=== PATIENT | female | born 1985 | race Caucasian/White ===

== ENCOUNTER 2016-06-06 14:25 | Emergency (ER) | payer OTHER | END 2016-06-06 16:30 | disposition home or self-care (01) | LOC: ER1 14:25 | DX: L02.416 Cutaneous abscess of left lower limb (principal); E11.9 Type 2 diabetes mellitus without complications; Z90.49 Acquired absence of other specified parts of digestive tract; Z79.84 Long term (current) use of oral hypoglycemic drugs; Z79.899 Other long term (current) drug therapy | CPT/HCPCS: 10061; 87070; 87077; 87186; 87205; 99283 ==

== ENCOUNTER 2020-09-06 18:52 | Emergency (ER) | payer OTHER ==
[2020-09-06 21:13] LABS: HEMOGLOBIN 14.5 gm/dl (12.3-15.3); RED BLOOD COUNT 5.03 M/UL (4.00-5.10); WHITE BLOOD COUNT 9.6 K/UL (4.5-11.0)
[2020-09-06 21:35] LABS: BUN/CREATININE RATIO 19 (0-10)
[2020-09-06] MEDS ORDERED: IBUPROFEN800 MG PO (23:07)
[2020-09-06] MEDS ORDERED: CYCLOBENZAPRINE10 MG PO (23:07)
== END 2020-09-06 23:12 | disposition home or self-care (01) ==
LOC: ER1 18:52
PROVIDERS: Physician Assistant
DX: M48.062 Spinal stenosis, lumbar region with neurogenic claudication (principal); Z90.49 Acquired absence of other specified parts of digestive tract
CPT/HCPCS: 72132; 80053; 84703; 85025; 85652; 86140; 96374; 96375; 99284; J1885; J2270; Q9967

== ENCOUNTER 2020-11-06 12:04 | Emergency (ER) | payer OTHER ==
[~2020-11-06 12:04] MED LIST: CYCLOBENZAPRINE10 MG PO; IBUPROFEN800 MG PO
== END 2020-11-06 14:45 | disposition home or self-care (01) ==
LOC: ER1 12:04
DX: U07.1 COVID-19 (principal); Z90.49 Acquired absence of other specified parts of digestive tract
CPT/HCPCS: 71045; 99285; U0002

== ENCOUNTER → 2021-05-28 | Outpatient (CLI) | payer OTHER | LOC: RAD 08:20 | DX: M54.9 Dorsalgia, unspecified (principal); M54.2 Cervicalgia; R05.9 Cough, unspecified; M46.02 Spinal enthesopathy, cervical region; M48.02 Spinal stenosis, cervical region; M47.814 Spondylosis without myelopathy or radiculopathy, thoracic region; M47.816 Spondylosis without myelopathy or radiculopathy, lumbar region | CPT/HCPCS: 71046; 72050; 72072; 72110 ==

== ENCOUNTER 2021-11-15 18:44 | Emergency (ER) | payer OTHER ==
[2021-11-15] MEDS ORDERED: PERCOCET 5/325 T1 EA PO (21:55)
[2021-11-15] MEDS ORDERED: AUGMENTIN XR 11 EACH PO (21:55)
== END 2021-11-15 20:20 | disposition home or self-care (01) ==
LOC: ER1 18:44
DX: L02.413 Cutaneous abscess of right upper limb (principal); G62.9 Polyneuropathy, unspecified; Z90.49 Acquired absence of other specified parts of digestive tract
CPT/HCPCS: 10060; 99283